=== PATIENT | female | born 1990 | race Caucasian/White ===

== ENCOUNTER → 2022-05-29 15:45 | Observation (INO) ==
[2022-05-29 14:01] LABS: Basophils % 0.2 %; Eosinophils % 0.2 %; Hematocrit 36.3 % (35.3-44.9); Hemoglobin 12.9 g/dL (11.5-15.4); Immature Granulocytes % 0.5 % (0-4); Lymphocytes % 17.2 %; Mean Corpuscular HGB Conc 35.5 g/dL (31.6-35.5); Mean Corpuscular Hemoglobin 33.6 pg (28.0-33.3); Mean Corpuscular Volume 94.5 fL (83.0-100.0); Mean Platelet Volume 11.2 fL (9.4-12.4); Monocytes # 0.7 K/mcL (0.0-1.3); Monocytes % 5.9 %; Platelet Count 239 K/mcL (140-400); Red Blood Count 3.84 M/mcL (3.82-4.97); Red Cell Distribution Width 12.4 % (11.5-14.5); White Blood Count 11.8 K/mcL (4.3-11.1)
[2022-05-29 14:24] LABS: Protein/Creatinine Ratio,Urine 0.2 mg/mg (0.00-0.20)
[2022-05-29 14:45] LABS: Alanine Aminotransferase 16 Units/L (7-52); Aspartate Amino Transferase 17 Units/L (13-39); BUN/Creatinine Ratio 7 (6-26); Blood Urea Nitrogen 5 mg/dL (6-20); Lactate Dehydrogenase 146 Units/L (140-271); Uric Acid 7.3 mg/dL (2.3-7.6)
== END | disposition home or self-care (01) ==
LOC: 1NENULAB
PROVIDERS: ADMIT Advanced Practice Midwife; ATTEND Advanced Practice Midwife

== ENCOUNTER 2022-05-30 17:47 | Inpatient (IN) ==
[2022-05-30 17:30] LABS: Basophils % 0.2 %; Eosinophils % 0.2 %; Hematocrit 35.3 % (35.3-44.9); Hemoglobin 12.8 g/dL (11.5-15.4); Immature Granulocytes % 0.7 % (0-4); Lymphocytes # 2.6 K/mcL (0.6-4.6); Mean Corpuscular HGB Conc 36.3 g/dL (31.6-35.5); Mean Corpuscular Hemoglobin 34.2 pg (28.0-33.3); Mean Corpuscular Volume 94.4 fL (83.0-100.0); Mean Platelet Volume 11.4 fL (9.4-12.4); Monocytes # 0.9 K/mcL (0.0-1.3); Monocytes % 6.7 %; Neutrophils # 9.4 K/mcL (1.6-8.9); Platelet Count 239 K/mcL (140-400); Red Blood Count 3.74 M/mcL (3.82-4.97); Red Cell Distribution Width 12.4 % (11.5-14.5); Segmented Neutrophils % 72.2 %; White Blood Count 13.1 K/mcL (4.3-11.1)
[2022-05-30 17:37] LABS: Amphetamine Screen,Urine Negative ng/mL (Cutoff=1000); Barbiturate Screen,Urine Negative ng/mL (Cutoff=200); Benzodiazepines Screen,Urine Negative ng/mL (Cutoff=200); Cannabinoid Screen,Urine Negative ng/mL (Cutoff = 50); Cocaine Screen,Urine Negative ng/mL (Cutoff= 300); Creatinine,Urine 26 mg/dL; Opiate Screen,Urine Negative ng/mL (Cutoff=300); Phencyclidine Screen,Urine Negative ng/mL (Cutoff=25); Protein/Creatinine Ratio,Urine 0.15 mg/mg (0.00-0.20)
[~2022-05-30 17:47] MED LIST: *HR* Nalbuphine 10 MG/ML AMPUL IV PRN; Azithromycin 500 MG in 0.9 % Sodium Chloride 250 ML IVPB PRN; Famotidine 20 MG/2 ML VIAL IVP PRN; Lidocaine -MPF 1% 5 ML AMPUL INFILT PRN; Metoclopramide 10 MG/2 ML VIAL IVP PRN; Naloxone 0.4 MG/ML INJ IVP PRN; Ondansetron 4 MG/2 ML VIAL IVP PRN; Penicillin G Potassium 5,000,000 UNIT in 0.9 % Sodium Chloride Mini Bag 100 ML IVPB ONE
[2022-05-30 17:48] LABS: Alanine Aminotransferase 15 Units/L (7-52); Aspartate Amino Transferase 17 Units/L (13-39); BUN/Creatinine Ratio 11 (6-26); Blood Urea Nitrogen 6 mg/dL (6-20); Lactate Dehydrogenase 150 Units/L (140-271)
[2022-05-30] MEDS: Ringers Solution, Lactated 1,000 ML IVC SCH (18:00)
[2022-05-30] MEDS ORDERED: Oxytocin 30 UNIT/503 ML BAG IVC SCH (20:45)
[2022-05-30] MEDS: miSOPROStoL 25 MCG TABLET PO PRN (21:03)
[2022-05-30] MEDS ORDERED: EPHEDrine sulfate 50 MG/10 ML VIAL IVP PRN (21:52)
[2022-05-30] MEDS: Penicillin G Potassium 2,500,000 UNIT/105 ML MLS IVPB SCH (23:43)
[2022-05-31] MEDS: miSOPROStoL 25 MCG TABLET PO PRN (01:15)
[2022-05-31] MEDS: Penicillin G Potassium 2,500,000 UNIT/105 ML MLS IVPB SCH ×3 (04:56→13:10)
[2022-05-31] MEDS: Ringers Solution, Lactated 1,000 ML IVC SCH ×2 (04:58→10:11)
[2022-05-31] MEDS ORDERED: *HR* FentaNYL (PF) 100 MCG/2 ML VIAL ONE (09:53)
[2022-05-31] MEDS ORDERED: Ropivacaine/PF 0.2% 20 ML VIAL ONE (09:54)
[2022-05-31] MEDS: Epidural Premix (fent/bupiv) 110 ML EP SCH ×2 (10:22→17:06)
[2022-05-31] MEDS: Oxytocin 30 UNIT/503 ML BAG IVC SCH ×2 (16:22→20:39)
[2022-05-31] MEDS ORDERED: Ondansetron ODT 4 MG TAB.RAPDIS SL PRN (18:53)
[2022-05-31] MEDS ORDERED: OXYTOCIN/RINGERS LACTATE 10 UNIT/166.6 ML BAG IVC ONE (18:53)
[2022-05-31] MEDS ORDERED: Benzocaine/Menthol 56 GM AEROSOL SPRAY TP PRN (18:53)
[2022-05-31] MEDS ORDERED: Lanolin 7 G OINT...G. TP PRN (18:53)
[2022-05-31] MEDS ORDERED: *HR* OxyCODONE Immed Rel 5 MG TABLET PO PRN (18:53)
[2022-05-31] MEDS: Acetaminophen 325 MG TABLET PO SCH (20:40)
[2022-06-01] MEDS: Ibuprofen 600 MG TABLET PO SCH ×2 (04:01→12:23)
[2022-06-01] MEDS: Acetaminophen 325 MG TABLET PO SCH ×3 (04:01→14:53)
[2022-06-01 05:03] LABS: Basophils % 0.2 %; Eosinophils % 0.1 %; Hematocrit 28.4 % (35.3-44.9); Immature Granulocytes % 0.6 % (0-4); Lymphocytes # 2.9 K/mcL (0.6-4.6); Lymphocytes % 15.3 %; Mean Corpuscular HGB Conc 35.6 g/dL (31.6-35.5); Mean Corpuscular Hemoglobin 34.2 pg (28.0-33.3); Mean Corpuscular Volume 96.3 fL (83.0-100.0); Mean Platelet Volume 11.7 fL (9.4-12.4); Monocytes # 1.3 K/mcL (0.0-1.3); Monocytes % 6.7 %; Neutrophils # 14.7 K/mcL (1.6-8.9); Platelet Count 199 K/mcL (140-400); Red Blood Count 2.95 M/mcL (3.82-4.97); Red Cell Distribution Width 12.5 % (11.5-14.5); Segmented Neutrophils % 77.1 %
[2022-06-01 05:10] LABS: Hemoglobin 10.1 g/dL (11.5-15.4)
[2022-06-01 08:24] VITALS: TEMP 98.1; O2SAT 99
[2022-06-01] MEDS ORDERED: polyethylene glycoL 3350 17 GM POWD.PACK PO SCH (09:00)
[2022-06-01] MEDS ORDERED: Prenatal Vit/FA 1 EACH TABLET PO SCH (09:00)
[2022-06-01] MEDS ORDERED: Magnesium Sulfate 1 EACH PACKAGE TP SCH (09:00)
[2022-06-01 15:29] VITALS: BP 137/82; PULSE 72
== END 2022-06-01 18:45 | disposition home or self-care (01) | DRG 768 ==
LOC: 1NENULAB → 1NENUOBS 05-31 19:40
PROVIDERS: ADMIT Advanced Practice Midwife; ATTEND Advanced Practice Midwife